=== PATIENT | male | born 1975 | race African-American/Black ===

== ENCOUNTER 2020-03-03 12:17 | Emergency (ER) | payer MEDICAID ==
[~2020-03-03] VITALS: Ht 177.8 cm; Wt 78.0 kg
[2020-03-03 12:20] VITALS: BP 140/70
[2020-03-03] MEDS ORDERED: HYDROCODONE/ACETAMINOPHEN 5/325MG TABLET PO STA (13:07)
[2020-03-03] MEDS ORDERED: BACITRACIN ZINC OINT UDPKT TOP ONE ×2 (13:45→17:15)
[2020-03-03] MEDS ORDERED: LIDOCAINE HCL/PF 1% 10 MG/ML 5ML VIAL IJ ONE (17:15)
[2020-03-03] MEDS ORDERED: TETANUS, DIPHTHERIA, PERTUSSIS VAC/PF 0.5ML (>7YR OLD) IM ONE (18:00)
== END 2020-03-03 18:50 | disposition home or self-care (01) ==
LOC: ER 12:25
DX: S02.2XXA Fracture of nasal bones, initial encounter for closed fracture (principal); S00.83XA Contusion of other part of head, initial encounter; S50.312A Abrasion of left elbow, initial encounter; G93.89 Other specified disorders of brain; Y00.XXXA Assault by blunt object, initial encounter; Y93.89 Activity, other specified; Y92.89 Other specified places as the place of occurrence of the external cause; Z23 Encounter for immunization
CPT/HCPCS: 70450; 70486; 73080; 90471; 90715; 99285; Z7610